=== PATIENT | female | born 1950 | race Caucasian/White ===

== ENCOUNTER → 2017-03-07 | Outpatient (CLI) | payer MEDICARE, BC ==
[2017-03-07 13:39] VITALS: BP 143/76; PULSE 64; RESP 16; TEMP 97.4; BMI 32.5
--- NOTE | 2017-03-07 13:53 | P.HPBAR ---
Bariatric H&P - History & Physicial H&P Date: 03/07/17 History & Physicial: Visit/CC: Band Adj Patient initial contact: Initial weight: 91.626 kg Initial weight in pounds: 202.00 Height: 5 ft 6 in Initial BMI: 32.5 Last weight: Current weight: 91.626 kg Current weight in pounds: 202.00 Current BMI: 32.5 [place] body weight (based on NIH guidelines): 58.967 kg Excess body weight loss: 0.0% The patient is a 66 year-old F who presents for Bariatric Assessment. The patient presents for lap band follow-up. Not seen her for over a year. She underwent a radical hysterectomy for an ovarian carcinoma. She is requesting a fill of her LAP-BAND. She states that she has gained approximately 40 pounds. Past Medical History History of Any Multi-Drug Resistant Organisms: None Reported Smoking Status: Unknown if ever smoked Surgical - Exam Vital Signs Temp Pulse Resp BP 97.4 F L 64 16 143/76 03/07/17 13:33 03/07/17 13:33 03/07/17 13:33 03/07/17 13:33 - General well developed, no distress - Eyes PERRL - ENT normal pinna - Neck no masses - Respiratory normal expansion - Cardiovascular Rhythm: regular - Abdomen Abdomen: soft, non tender Bariatric Assessment & Plan Plan: The patient's lap band was adjusted. She had 0.5 mL added to her band. She currently has 5.5 mL in the band. She will follow-up in one month. Bariatric Checklist Checklist: Plan: Checklist: EGD: 1. Hiatal hernia: 2. H. Pylori: HgbA1c: Vitamin D: Smoking: Unknown if ever smoked Primary care physician referral: Psychiatry clearance: Cardiology clearance: Sleep study: Diet journal: VTE risk score: VTE risk level: Rehab needs at discharge:
== END | disposition home or self-care (01) ==
LOC: BARWHC3 13:12
PROVIDERS: ATTEND Surgery
DX: Z09 Encounter for follow-up examination after completed treatment for conditions other than malignant neoplasm (principal); Z98.84 Bariatric surgery status
CPT/HCPCS: 99212

== ENCOUNTER → 2017-04-04 | Outpatient (CLI) | payer MEDICARE, BC ==
[2017-04-04 13:37] VITALS: BP 134/62; PULSE 62; RESP 16; TEMP 97.4; BMI 32.5
--- NOTE | 2017-04-04 15:16 | P.HPBAR ---
Bariatric H&P - History & Physicial H&P Date: 04/04/17 History & Physicial: Visit/CC: band adj Patient initial contact: Initial weight: 91.626 kg Initial weight in pounds: 202.00 Height: 5 ft 6 in Initial BMI: 32.5 Last weight: 202 Current weight: 91.399 kg Current weight in pounds: 201.00 Current BMI: 32.5 [place] body weight (based on NIH guidelines): 58.967 kg Excess body weight loss: 1.3% The patient is a 66 year-old F who presents for Bariatric Assessment. Patient resents today for lab band follow up. She states she is in a good zone. She's had some minimal GERD. She is also had some mild arthritis. She denies any nausea or vomiting. Past Medical History History of Any Multi-Drug Resistant Organisms: None Reported Smoking Status: Unknown if ever smoked Surgical - Exam Vital Signs Temp Pulse Resp BP 97.4 F L 62 16 134/62 04/04/17 13:24 04/04/17 13:24 04/04/17 13:24 04/04/17 13:24 - General well developed, no distress - Eyes PERRL - ENT normal pinna - Neck no masses - Respiratory normal expansion - Cardiovascular Rhythm: regular - Abdomen Abdomen: soft, non tender Bariatric Assessment & Plan Plan: Patient is doing well from a weight loss standpoint. Her GERD and arthritis symptoms are minimal and will be observed. She'll follow-up in 2 months. Bariatric Checklist Checklist: Plan: Checklist: EGD: 1. Hiatal hernia: 2. H. Pylori: HgbA1c: Vitamin D: Smoking: Unknown if ever smoked Primary care physician referral: Psychiatry clearance: Cardiology clearance: Sleep study: Diet journal: VTE risk score: VTE risk level: Rehab needs at discharge:
== END | disposition home or self-care (01) ==
LOC: BARWHC3 12:53
PROVIDERS: ATTEND Surgery
DX: Z48.815 Encounter for surgical aftercare following surgery on the digestive system (principal); K21.9 Gastro-esophageal reflux disease without esophagitis; M19.90 Unspecified osteoarthritis, unspecified site; Z98.84 Bariatric surgery status
CPT/HCPCS: 99211

== ENCOUNTER → 2017-09-29 | Outpatient (CLI) | payer MEDICARE, BC ==
[2017-09-29 16:59] LABS: Basophils # (A) 0.1 k/uL (0-0.2); Basophils % (A) 1 %; Eosinophils # (A) 0.1 k/uL (0-0.7); Eosinophils % (A) 2 %; HGB 12.9 gm/dL (11.4-16.0); Lymphocytes # (A) 2.3 k/uL (1.0-4.8); Lymphocytes % (A) 28 %; MCHC 32.9 g/dL (31.0-37.0); MCV 94.1 fL (80.0-100.0); Mean Platelet Volume 7.9; Monocytes # (A) 0.5 k/uL (0-1.0); Monocytes % (A) 6 %; Neutrophils % (A) 62 %; Platelet Count 223 k/uL (150-450); RBC 4.15 m/uL (3.80-5.40); RDW 12.3 % (11.5-15.5); WBC 8.1 k/uL (3.8-10.6)
[2017-09-29 17:01] LABS: Potassium 4.7 mmol/L (3.5-5.1)
== END | disposition home or self-care (01) ==
LOC: LABPAT 16:31
PROVIDERS: ATTEND Orthopaedic Surgery
DX: Z01.812 Encounter for preprocedural laboratory examination (principal); M65.321 Trigger finger, right index finger
CPT/HCPCS: 36415; 80051; 85025

== ENCOUNTER 2017-10-12 09:44 | Day surgery (SDC) | payer MEDICARE, BC ==
[2017-10-10 10:33] VITALS: BMI 31.0
--- NOTE | 2017-10-11 14:05 | HP ---
HISTORY AND PHYSICAL DATE OF SERVICE: 10/12/2017 Aurelia Figueroa is a 67-year-old patient seen with symptomatic right index finger trigger finger. Treatment options were discussed with her. She elected to proceed with release A1 toan, right index finger. Consent was obtained. PAST MEDICAL HISTORY: Hypertension. PAST SURGICAL HISTORY: Hysterectomy. DAILY MEDICATIONS: Carvedilol. ALLERGIES: None reported. SOCIAL HISTORY: Patient denies tobacco use. PHYSICAL EVALUATION OF THE RIGHT HAND: There is tenderness along the A1 toan area of the right index finger. There is clicking, catching of the right index finger with range of motion. Nontender along the remaining A1 toan sites. Distal neurovascular exam is intact. RADIOGRAPHS: Radiographs of the right hand reveals some mild osteoarthritic changes. IMPRESSION: Right index finger trigger finger. PLAN: Release A1 toan, right index finger. MMODL / IJN: [id number] /
[~2017-10-12 09:44] MED LIST: DEXAMETHASONE SOD PHOSPHATE 10 MG/ML 1 ML VIAL IV ONE; HYDROmorphone 0.5 MG/0.5 ML SYRINGE IVP PRN; LACTATED RINGERS 1,000 ML IV SCH; MIDAZOLAM 2 MG/2 ML VIAL IV PRN; ONDANSETRON ODT 4 MG TAB PO ONE; ceFAZolin IN SWFI 2 GM/20 ML SYRINGE IVP ONE
[2017-10-12 10:42] VITALS: TEMP 97.8
[2017-10-12] MEDS ORDERED: LIDOCAINE 1% 20 ML VIAL (10MG/ML) FOR IV START INTRADERMA ONE (10:46)
[2017-10-12] MEDS ORDERED: PROPOFOL 10 MG/ML 20 ML VIAL IV ONE (12:28)
[2017-10-12] MEDS ORDERED: fentaNYL (PF) 50 MCG/ML 2 ML AMP ONE (12:28)
[2017-10-12] MEDS ORDERED: MIDAZOLAM 2 MG/2 ML VIAL ONE (12:28)
[2017-10-12] MEDS ORDERED: ceFAZolin IN SWFI 2 GM/20 ML SYRINGE IVP ONE (12:31)
[2017-10-12] MEDS ORDERED: BUPIVACAINE (PF) 0.25% 30 ML VIAL SQ ONE (12:42)
--- NOTE | 2017-10-12 12:57 | P.OP ---
Date of Procedure: 10/12/17 Preoperative Diagnosis: Right index finger trigger finger Postoperative Diagnosis: Right index finger trigger finger Procedure(s) Performed: Release A1 toan right index finger Anesthesia: TAMICA, local Surgeon: Giorgio Atwood Estimated Blood Loss (ml): 1 Pathology: none sent Condition: stable Disposition: PACU Indications for Procedure: 67-year-old patient seen with a symptomatic right index finger trigger finger. After options regarding treatment were discussed, she elected to proceed with release A1 toan. Operative Findings: see description of procedure Description of Procedure: Patient was taken to the operative suite. The patient received preoperative IV antibiotics. The patient underwent IV sedation by the department of anesthesia. A well-padded tourniquet placed proximal right upper extremity. The right upper extremity was prepped and draped in the normal sterile orthopedic fashion. I infiltrated the proposed incision site with 5 mL quarter percent plain Marcaine. When good local analgesia was noted the extremity was elevated and tourniquet was insufflated to 250. I made an incision over the area A1 toan right index finger. I dissected down to the toan. I released the toan. I noted complete release of the toan and good excursion of the tendon with no impingement. There was good hemostasis. The skin is proximal nylon suture. We applied sterile dressings followed by web roll and Ray bandage. The tourniquet was released noting immediate capillary refill of all digits. Patient was then awakened and transferred to recovery stable condition.
[2017-10-12 13:15] VITALS: RESP 16
[2017-10-12 13:45] VITALS: BP 116/76; PULSE 70
== END 2017-10-12 13:54 | disposition home or self-care (01) ==
LOC: OR 09:44
PROVIDERS: ATTEND Orthopaedic Surgery
DX: M65.321 Trigger finger, right index finger (principal); M19.041 Primary osteoarthritis, right hand; I10 Essential (primary) hypertension; F39 Unspecified mood [affective] disorder; Z79.899 Other long term (current) drug therapy; Z79.82 Long term (current) use of aspirin; Z87.891 Personal history of nicotine dependence
CPT/HCPCS: 26055; J2250; J1100; J3010; J2704; J0690

== ENCOUNTER → 2017-10-17 | Outpatient (CLI) | payer MEDICARE, BC ==
--- NOTE | 2017-10-17 22:04 | MR ---
EXAMINATION TYPE: MR knee RT wo con DATE OF EXAM: 10/17/2017 COMPARISON: Outside right knee x-ray September 29, 2017 HISTORY: Rt knee pain, medial x 2 months, no trauma TECHNIQUE: Multiplanar, multisequence images of the knee is performed without IV contrast. FINDINGS: MEDIAL MENISCUS: Anterior horn is intact without tear. Triangular-shaped opacity posterior horn does not extend to articular surface. LATERAL MENISCUS: Anterior horn is intact without tear. Posterior horn shows some increased signal ma y be extending to articular surface deeper aspects. CRUCIATE LIGAMENTS: The posterior cruciate ligament is intact and unremarkable. Normal-appearing ante rior cruciate ligament is not seen. Some fibers in the intercondylar notch from the tear are seen jus t anterior to the posterior cruciate ligament. COLLATERAL LIGAMENTS: The medial collateral ligament and lateral collateral ligament complex are inta ct and unremarkable. EXTENSOR MECHANISM: Visualized quadriceps and patellar tendons are intact. EFFUSION: No significant suprapatellar joint effusion. POPLITEAL CYST: No popliteal/salter cyst. Small curvilinear fluid collection extends inferior and pos terior to the popliteal fossa seen best near axial image 7. TRICOMPARTMENT SPACES: There is mild to moderate tricompartment joint space loss and spurring. There is subchondral cystic change central tibial plateau. CARTILAGE: There is some mild thinning of articular cartilage medial tibiofemoral compartment. No sig nificant chondromalacia patella is present. BONE MARROW SIGNAL: No focal abnormal marrow signal is appreciated. OTHER: Cystic change posterior to the tibial plateau could reflect ganglion cyst. IMPRESSION: 1. Complete ACL tear. 2. Background mild to moderate tricompartment degenerative changes in right knee. 3. At least intrasubstance but suspected full-thickness tear posterior horn of lateral meniscus. 4. Intrasubstance tear posterior horn of medial meniscus.
== END | disposition home or self-care (01) ==
LOC: RADMRIMAIN 19:27
PROVIDERS: ATTEND Orthopaedic Surgery
DX: M25.561 Pain in right knee (principal); S83.511A Sprain of anterior cruciate ligament of right knee, initial encounter; S83.241A Other tear of medial meniscus, current injury, right knee, initial encounter

== ENCOUNTER 2018-03-08 08:40 | Day surgery (SDC) | payer MEDICARE, BC ==
[2018-03-03 14:13] VITALS: BMI 31.3
--- NOTE | 2018-03-07 17:19 | HP ---
HISTORY AND PHYSICAL DATE OF SURGERY: 03/08/2018 Aurelia lubin is a 67-year-old patient seen with progressive right knee pain. We discussed treatment options. She elected to proceed with right knee arthroscopy. Consent regarding the procedure was obtained. PAST MEDICAL HISTORY: Hypertension. PAST SURGICAL HISTORY: Hysterectomy. DAILY MEDICATIONS: Carvedilol, ramipril. ALLERGIES: NONE. SOCIAL HISTORY: Patient denies tobacco use. PHYSICAL EVALUATION OF THE RIGHT KNEE: Range of motion is 0-130. Tenderness along the medial and lateral joint lines. Positive medial James's. Mild to moderate effusion. Ligaments stable. Hip rotation without pain. Distal neurovascular exam intact. RADIOGRAPHS: Radiographs which were obtained of the right knee revealed mild medial and lateral compartment osteoarthritis with moderate patellofemoral compartment osteoarthritis. An MRI of the right knee revealed an anterior cruciate ligament tear, a medial and lateral meniscal tear as well as joint osteoarthritis. IMPRESSION: 1. Internal derangement of right knee with medial and lateral meniscal tears. 2. Right knee osteoarthritis. 3. Right knee anterior cruciate ligament tear. PLAN: Right knee arthroscopy with partial meniscectomy and debridement. MMODL / IJN: [id number] /
[~2018-03-08 08:40] MED LIST changes: -HYDROmorphone 0.5 MG/0.5 ML SYRINGE IVP PRN; +LIDOCAINE 1% 20 ML VIAL (10MG/ML) FOR IV START INTRADERMA PRN; +ONDANSETRON 4 MG/2 ML VIAL IVP ONE; -ONDANSETRON ODT 4 MG TAB PO ONE; +SCOPOLAMINE 1.5MG/72HR PATCH TRANSDERM ONE
[2018-03-08] MEDS ORDERED: fentaNYL (PF) 50 MCG/ML 2 ML AMP ONE (10:20)
[2018-03-08] MEDS ORDERED: PROPOFOL 10 MG/ML 20 ML VIAL IV ONE (10:20)
[2018-03-08] MEDS ORDERED: MIDAZOLAM 2 MG/2 ML VIAL ONE (10:20)
[2018-03-08] MEDS ORDERED: LIDOCAINE 1% INJ 10MG/ML (20 ML MDV) ONE (10:20)
[2018-03-08] MEDS ORDERED: BUPIVACAIN-EPI 0.25%-1:200,000 30 ML VIAL SQ ONE (10:34)
[2018-03-08] MEDS ORDERED: IV FLUID CONTINUATION 1,000 ML IV ONE (11:13)
[2018-03-08 11:20] VITALS: TEMP 97
--- NOTE | 2018-03-08 11:21 | P.OP ---
Date of Procedure: 03/08/18 Preoperative Diagnosis: Internal derangement right knee Postoperative Diagnosis: 1. Tear medial and lateral meniscus right knee 2. Grade 2 chondromalacia medial femoral condyle right knee 3. Grade 2 chondromalacia lateral tibial plateau right knee 4. Grade 2 chondromalacia patella right knee 5. Reactive synovitis medial, lateral and suprapatellar compartments right knee Procedure(s) Performed: 1. Arthroscopic partial medial and lateral meniscectomy right knee 2. Arthroscopic chondroplasty medial femoral condyle right knee 3. Arthroscopic chondroplasty lateral tibial plateau right knee 4. Arthroscopic chondroplasty patella right knee 5. Arthroscopic partial synovectomy medial, lateral and suprapatellar compartments right knee Anesthesia: TEDDYA, local Surgeon: Giorgio Atwood Estimated Blood Loss (ml): 5 Pathology: none sent Condition: stable Disposition: PACU Indications for Procedure: 67-year-old patient seen with progressive right knee pain. After having treatment options discussed, she elected to proceed with arthroscopy. Operative Findings: See description of procedure Description of Procedure: Patient was taken to the operative suite. Patient underwent a general anesthetic by the department of anesthesia. Patient was given preoperative antibiotics. The right lower extremity was placed in a well-padded arthroscopic leg wiley. The right leg was prepped and draped in the normal sterile orthopedic fashion. A lateral parapatellar and suprapatellar incision was made. Trochars were inserted. Arthroscopy was initiated. Suprapatellar pouch revealed diffuse thick reactive synovitis. The patellofemoral joint appeared to articulate congruently. There was grade 2 chondromalacia with some osteochondral tears present. The scope was guided into the medial gutter. No loose bodies or plica were identified. The scope was then guided into the medial compartment. A medial parapatellar incision was made. Trocar inserted followed by probe. There was a radial tear involving the posterior horn medial meniscus. There were grade 2 chondromalacia changes of the medial femoral condyle with osteochondral tears present. There was reactive synovitis anteriorly. I performed a partial medial meniscectomy down to stable tissue. I performed a chondroplasty of the medial femoral condyle down to stable tissue. I performed a partial synovectomy decompressing the reactive synovitis. The residual meniscus was probed and found to be stable. The residual osteochondral surface of the femoral condyle was stable. There was good decompression of the synovitis. Scope and probe were then guided into the intercondylar notch. Cruciates were identified, probed and found to be stable. The scope and probe were then guided into lateral compartment. There were tears involving the anterior horn, mid body and posterior horn of lateral meniscus. There were grade 2 chondromalacia changes of the lateral tibial plateau with osteochondral tears present. There was thick synovitis anteriorly. I performed a partial lateral meniscectomy down to stable tissue. I performed a chondroplasty of the lateral femoral condyle down to stable tissue. I performed a partial synovectomy decompressing the reactive sites anteriorly. The residual meniscus was stable. The residual osteochondral surface was stable. There was good decompression synovitis. The scope was in guided back into the suprapatellar compartment. I introduced a motorized shaver into the super patellar compartment. I performed a chondroplasty of the patella down to stable tissue. I performed a partial synovectomy decompressing the reactive synovitis. The residual osteochondral surface of the patella was found to be stable. There was good decompression synovitis. I took one more look on the entire knee, no residual debris. Instruments were now removed from the joint. The joint was infiltrated with .25% Marcaine. Steri-Strips were applied to the portal sites. Sterile dressings were applied. The patient was placed into a DANICA hose. No tourniquet was utilized. The patient was awakened, transferred to a bed and taken to recovery stable satisfactory condition.
[2018-03-08] MEDS: HYDROmorphone 0.5 MG/0.5 ML SYRINGE IVP PRN ×2 (11:33→11:47)
[2018-03-08] MEDS ORDERED: ONDANSETRON 4 MG/2 ML VIAL IVP ONE (11:33)
[2018-03-08] MEDS ORDERED: LACTATED RINGERS 1,000 ML IV ONE (12:19)
[2018-03-08 12:22] VITALS: RESP 18
[2018-03-08 12:38] VITALS: BP 118/73; PULSE 67
== END 2018-03-08 13:29 | disposition home or self-care (01) ==
LOC: OR 08:40
PROVIDERS: ATTEND Orthopaedic Surgery
DX: S83.241A Other tear of medial meniscus, current injury, right knee, initial encounter (principal); S83.281A Other tear of lateral meniscus, current injury, right knee, initial encounter; X58.XXXA Exposure to other specified factors, initial encounter; M22.41 Chondromalacia patellae, right knee; M65.861 Other synovitis and tenosynovitis, right lower leg; I10 Essential (primary) hypertension; Z87.891 Personal history of nicotine dependence; F39 Unspecified mood [affective] disorder; Z98.84 Bariatric surgery status; Z85.43 Personal history of malignant neoplasm of ovary; Z79.82 Long term (current) use of aspirin; Z79.899 Other long term (current) drug therapy
CPT/HCPCS: 29880; J2250; J1100; J2405; J2001; J3010; J2704; J1170; J0690

== ENCOUNTER → 2018-11-06 | Outpatient (CLI) | payer MEDICARE, BC ==
[2018-11-06 14:12] VITALS: BP 152/87; PULSE 65; RESP 16; TEMP 98.3; BMI 35.6
--- NOTE | 2018-11-20 14:26 | P.HPBAR ---
Bariatric H&P - History & Physicial H&P Date: 11/06/18 History & Physicial: Visit/CC: band adj Patient initial contact: Initial weight: 91.626 kg Initial weight in pounds: 202.00 Height: 5 ft 6 in Initial BMI: 32.5 Last weight: Current weight: 100.244 kg Current weight in pounds: 221.00 Current BMI: 35.6 [place] body weight (based on NIH guidelines): 58.967 kg Excess body weight loss: The patient is a 68 year-old F who presents for Bariatric Assessment. Patient presents today for LAP-BAND adjustment. She currently feels hungry and is requesting a fill of her LAP-BAND. Past Medical History Past Medical History: Cancer, Hypertension, Osteoarthritis (OA) Additional Past Medical History / Comment(s): Ovarian cancer, cardiomyopathy. History of Any Multi-Drug Resistant Organisms: None Reported Past Surgical History: Bariatric Surgery, Cholecystectomy, Hysterectomy Additional Past Surgical History / Comment(s): Lap band surgery, bilateral cataract surgery. OVARIES REMOVED Past Anesthesia/Blood Transfusion Reactions: No Reported Reaction Smoking Status: Former smoker - Past Family History Mother Family Medical History: No Reported History Father Family Medical History: Pulmonary Embolus Brother(s) Family Medical History: Deep Vein Thrombosis (DVT) Surgical - Exam Vital Signs Temp Pulse Resp BP 98.3 F 65 16 152/87 11/06/18 14:08 11/06/18 14:08 11/06/18 14:08 11/06/18 14:08 - General well developed, well nourished, no distress - Eyes PERRL - Abdomen Abdomen: soft, non tender Bariatric Assessment & Plan Plan: Patient LAP-BAND was adjusted. 0.5 mL without event. She will follow-up in 4 weeks. Bariatric Checklist Checklist: Plan: Checklist: EGD: 1. Hiatal hernia: 2. H. Pylori: HgbA1c: Vitamin D: Smoking: Former smoker Primary care physician referral: Psychiatry clearance: Cardiology clearance: Sleep study: Diet journal: VTE risk score: VTE risk level: Rehab needs at discharge:
== END | disposition home or self-care (01) ==
LOC: BARWHC3 13:02
PROVIDERS: ATTEND Surgery
DX: Z46.51 Encounter for fitting and adjustment of gastric lap band (principal); T73.0XXA Starvation, initial encounter; Z98.84 Bariatric surgery status; Z90.49 Acquired absence of other specified parts of digestive tract; Z90.710 Acquired absence of both cervix and uterus; Z87.891 Personal history of nicotine dependence
CPT/HCPCS: 99212

== ENCOUNTER → 2018-12-04 | Outpatient (CLI) | payer MEDICARE, BC ==
[2018-12-04 14:40] VITALS: BP 141/66; PULSE 65; TEMP 98.8; BMI 35.5
--- NOTE | 2018-12-04 16:21 | P.HPBAR ---
Bariatric H&P - History & Physicial H&P Date: 12/04/18 History & Physicial: Visit/CC: band fill Patient initial contact: Initial weight: 91.626 kg Initial weight in pounds: 202.00 Height: 5 ft 6 in Initial BMI: 32.5 Last weight: Current weight: 99.926 kg Current weight in pounds: 220.30 Current BMI: 35.5 [place] body weight (based on NIH guidelines): 58.967 kg Excess body weight loss: The patient is a 68 year-old F who presents for Bariatric Assessment. Patient presents today for lab band follow up. She is requesting a fill of her LAP- BAND. She currently feels hungry. Past Medical History Past Medical History: Cancer, Hypertension, Osteoarthritis (OA) Additional Past Medical History / Comment(s): Ovarian cancer, cardiomyopathy. History of Any Multi-Drug Resistant Organisms: None Reported Past Surgical History: Bariatric Surgery, Cholecystectomy, Hysterectomy Additional Past Surgical History / Comment(s): Lap band surgery, bilateral cataract surgery. OVARIES REMOVED Past Anesthesia/Blood Transfusion Reactions: No Reported Reaction Past Psychological History: Anxiety Smoking Status: Former smoker Past Alcohol Use History: None Reported Additional Past Alcohol Use History / Comment(s): STARTED SMOKING AT AGE 28 QUIT 2008 SMOKED 1 PACK PER WEEK Past Drug Use History: None Reported - Past Family History Father Family Medical History: Pulmonary Embolus Brother(s) Family Medical History: Deep Vein Thrombosis (DVT) Surgical - Exam Vital Signs Temp Pulse BP 98.8 F 65 141/66 12/04/18 14:33 12/04/18 14:33 12/04/18 14:33 - General well developed, well nourished, no distress - Eyes PERRL - ENT normal pinna - Neck no masses - Respiratory normal expansion - Cardiovascular Rhythm: regular - Abdomen Abdomen: soft, non tender Bariatric Assessment & Plan Plan: The patient's lap band was adjusted. She had 0.5 mL added to her band. She currently has 6.5 mL in the band. She will follow-up in 4 weeks. Bariatric Checklist Checklist: Plan: Checklist: EGD: 1. Hiatal hernia: 2. H. Pylori: HgbA1c: Vitamin D: Smoking: Former smoker Primary care physician referral: Radha CarreraCobre) Psychiatry clearance: Cardiology clearance: Sleep study: Diet journal: VTE risk score: VTE risk level: Rehab needs at discharge:
== END | disposition home or self-care (01) ==
LOC: BARWHC3 13:49
PROVIDERS: ATTEND Surgery
DX: Z46.51 Encounter for fitting and adjustment of gastric lap band (principal); Z87.891 Personal history of nicotine dependence
CPT/HCPCS: 99212